=== PATIENT | male | born 1970 | race Two or more races ===

== ENCOUNTER 2021-10-04 12:56 | Inpatient (IN) | payer MEDICAID, OTHER ==
[~2021-10-04] VITALS: Ht 170.2 cm; Wt 74.0 kg
[2021-10-04 15:12] LABS: Basophils # (auto) 0.1 10 ^3/uL (0-0.2); Basophils % (auto) 1.4 % (0.0-2.0); Eosinophils # (auto) 0 10 ^3/uL (0-0.8); Eosinophils % (auto) 0.4 % (0.0-7.0); Hematocrit 47.4 % (41.0-53.0); Hemoglobin 15.7 g/dL (13.5-17.5); Lymphocytes # (auto) 0.6 10 ^3/uL (0.4-5.4); Lymphocytes % (auto) 10.4 % (10.0-50.0); Mean Corpuscular Hemoglobin 31.9 pg (28.0-32.0); Mean Corpuscular Hgb Conc. 33.2 g/dL (32.0-36.0); Mean Corpuscular Volume 96.3 fL (80.0-100.0); Monocytes # (auto) 0.6 10 ^3/uL (0-1.3); Monocytes % (auto) 9.8 % (0.0-12.0); Neutrophils # (auto) 4.5 10 ^3/uL (1.6-8.6); Nucleated Red Blood Cells % 0.1 %; Red Blood Cells 4.92 10^6/uL (4.5-5.90); Red Cell Distribution Width 16.1 % (11.8-14.3); White Blood Cell 5.7 10^3/uL (4.4-10.8)
[2021-10-04 15:32] LABS: Albumin 2.5 g/dL (3.4-5.0); Magnesium 2.1 mg/dL (1.6-2.6); Potassium 4.5 mmol/L (3.5-5.1)
[2021-10-04 15:41] LABS: BUN/Creatinine Ratio 27.7; Bilirubin, Total 1.1 mg/dL (0.2-1.0); Calcium 8.1 mg/dL (8.5-10.1); Total Protein 7.9 g/dL (6.4-8.2)
[2021-10-04] MEDS ORDERED: CLOPIDOGREL BISULFATE 75 MG TAB PO ONE (16:00)
[2021-10-04] MEDS ORDERED: ACETAMINOPHEN 325 MG TAB PO ONE (16:00)
[2021-10-04] MEDS ORDERED: VANCOMYCIN 1GM/250ML 250 ML IV ONE ×3 (16:00→22:35)
[2021-10-04] MEDS ORDERED: ASPirin 325 MG TAB PO ONE (16:00)
[2021-10-04] MEDS ORDERED: DexAMETHasone SOD PHOS 10MG/1ML VIAL INJ IV ONE (16:00)
[2021-10-04] MEDS ORDERED: DOBUTamine 1000MCG/ML 250 ML IV ONE (16:00)
[2021-10-04] MEDS ORDERED: CEFEPIME 1 GM in SODIUM CHL 0.9% 50 ML IV ONE (17:00)
[2021-10-04] MEDS ORDERED: NITROGLYCERIN 0.4 MG SL TAB SL PRN ×2 (17:15→19:15)
[2021-10-04] MEDS ORDERED: MORPHINE SULFATE INJECTION 2 MG/ML SYRG IV PRN ×4 (17:15→19:15)
[2021-10-04] MEDS: DOBUTamine 1000MCG/ML 250 ML IV SCH (17:15)
[2021-10-04] MEDS ORDERED: MORPHINE SULFATE INJECTION 2 MG/ML SYRG ONE (17:25)
[2021-10-04] MEDS ORDERED: BUMETANIDE 2.5mg/10ml (0.25 mg/ml) INJ IV ONE (17:30)
[2021-10-04] MEDS ORDERED: ENOXAPARIN SOD 100 MG/1 ML SYRINGE SC ONE (17:30)
[2021-10-04] MEDS ORDERED: VANCOMYCIN PER PHARMACY 0 MG IV SCH (17:45)
[2021-10-04] MEDS ORDERED: PIPERACILLIN-TAZOB 3.375GM 100 ML IV ONE (17:45)
[2021-10-04] MEDS ORDERED: ISOSORBIDE MONONITRATE 20 MG TAB PO ONE (17:45)
[2021-10-04] MEDS ORDERED: IPRATROPIUM BROM 0.5 MG/2.5ML INH SOL NEB ONE ×2 (17:45→19:00)
[2021-10-04] MEDS ORDERED: IPRATROPIUM BROM 0.5 MG/2.5ML INH SOL NEB SCH (18:00)
[2021-10-04] MEDS ORDERED: BUDESONIDE (INHALATION) 0.5 MG/2 ML NEB NEB ONE (19:00)
[2021-10-04] MEDS ORDERED: ALBUTEROL SULF 2.5 MG/0.5ML(0.5%) NEB SOLN NEB PRN (19:00)
[2021-10-04] MEDS ORDERED: LORazepam 2MG/ML-1ML VIAL IV PRN (19:15)
[2021-10-04] MEDS ORDERED: LORazepam 0.5 MG TAB PO PRN (19:15)
[2021-10-04] MEDS ORDERED: ALUM & MAG HYDROX-SIMETH LIQ(MAALOX) 30 ML PO PRN (19:15)
[2021-10-04] MEDS ORDERED: DOCUSATE SOD 100 MG CAP PO PRN (19:15)
[2021-10-04] MEDS ORDERED: ACETAMINOPHEN 325 MG TAB PO PRN (19:15)
[2021-10-04] MEDS: CARVEDILOL 3.125 MG TAB PO SCH (22:00)
[2021-10-04] MEDS ORDERED: ATORVASTATIN 20 MG TAB ONE (22:35)
[2021-10-04] MEDS ORDERED: SACUBITRIL-VALSARTAN 24mg/26mg TAB PO ONE (22:35)
[2021-10-04] MEDS ORDERED: CARVEDILOL 3.125 MG TAB ONE (22:40)
[2021-10-04] MEDS: ATORVASTATIN 20 MG TAB PO SCH (22:50)
[2021-10-04] MEDS: SACUBITRIL-VALSARTAN 24mg/26mg TAB PO SCH (22:50)
[2021-10-05] VITALS (20 sets, daily range): BP systolic 85–124; BP diastolic 54–85
[2021-10-05] MEDS ORDERED: IPRATROPIUM BROM 0.5 MG/2.5ML INH SOL NEB SCH (02:00)
[2021-10-05] MEDS ORDERED: HYDROcodone-ACET 5/325MG TAB ONE (03:33)
[2021-10-05] MEDS: HYDROcodone-ACET 5/325MG TAB PO PRN (03:44)
[2021-10-05] MEDS ORDERED: DOBUTamine 1000MCG/ML 250 ML IV ONE ×3 (03:58→15:42)
[2021-10-05] MEDS ORDERED: PIPERACILLIN-TAZOB 3.375GM 100 ML IV ONE (04:07)
[2021-10-05] MEDS: PIPERACILLIN-TAZOB 3.375GM 100 ML IV SCH ×3 (04:08→17:48)
[2021-10-05] MEDS: DOBUTamine 1000MCG/ML 250 ML IV SCH ×3 (04:09→21:10)
[2021-10-05] MEDS ORDERED: BUMETANIDE 2.5mg/10ml (0.25 mg/ml) INJ IV SCH (06:00)
[2021-10-05] MEDS ORDERED: VANCOMYCIN 1GM/250ML 250 ML IV SCH (06:00)
[2021-10-05 06:40] LABS: Basophils # (auto) 0 10 ^3/uL (0-0.2); Basophils % (auto) 0.1 % (0.0-2.0); Eosinophils # (auto) 0 10 ^3/uL (0-0.8); Eosinophils % (auto) 0.1 % (0.0-7.0); Hematocrit 48.9 % (41.0-53.0); Hemoglobin 16.1 g/dL (13.5-17.5); Lymphocytes # (auto) 0.3 10 ^3/uL (0.4-5.4); Lymphocytes % (auto) 9.5 % (10.0-50.0); Mean Corpuscular Hemoglobin 31.5 pg (28.0-32.0); Mean Corpuscular Hgb Conc. 32.9 g/dL (32.0-36.0); Mean Corpuscular Volume 95.9 fL (80.0-100.0); Monocytes # (auto) 0.1 10 ^3/uL (0-1.3); Monocytes % (auto) 1.5 % (0.0-12.0); Neutrophils # (auto) 3.2 10 ^3/uL (1.6-8.6); Neutrophils % (auto) 88.8 % (37.0-80.0); Nucleated Red Blood Cells % 0.1 %; White Blood Cell 3.6 10^3/uL (4.4-10.8)
[2021-10-05] MEDS ORDERED: NOREPINEPHRINE 8 MG/250ML KIT 250 ML IV ONE (06:41)
[2021-10-05 06:57] LABS: INR 1.27 (0.9-1.15); Partial Thromboplastin Time 29.8 sec (23.6-33.0)
[2021-10-05] MEDS ORDERED: BUMETANIDE INJECTION 10 ML ONE (06:58)
[2021-10-05] MEDS: NOREPINEPHRINE 8 MG/250ML KIT 250 ML IV SCH (07:00)
[2021-10-05 07:04] LABS: Albumin 2.4 g/dL (3.4-5.0); Calcium 7.9 mg/dL (8.5-10.1); Magnesium 2.6 mg/dL (1.6-2.6); Potassium 3.7 mmol/L (3.5-5.1)
[2021-10-05 07:11] LABS: BUN/Creatinine Ratio 22.8; Phosphorus 2.5 mg/dL (2.5-4.90); Total Protein 7.6 g/dL (6.4-8.2)
[2021-10-05] MEDS ORDERED: VANCOMYCIN 1GM/250ML 0 ML IV ONE (09:40)
[2021-10-05] MEDS ORDERED: VERAPAMIL 2.5MG/ML INJ 2ML VIAL IV ONE (09:45)
[2021-10-05] MEDS ORDERED: ANGIOMAX 250 MG VIAL IV ONE (09:45)
[2021-10-05] MEDS ORDERED: HEPARIN SODIUM (PORCINE) 5000 UNITS/ML 1ML VIAL ONE (09:45)
[2021-10-05] MEDS ORDERED: MIDAZOLAM HCL 2MG/2ML 2ml VIAL (1mg/ml) ONE (09:45)
[2021-10-05] MEDS ORDERED: fentaNYL CITRATE 100 MCG/2 ML VL ONE (09:45)
[2021-10-05] MEDS ORDERED: LIDOCAINE 2%HCL (LOCAL ANESTH.) INJ 20ML MDV ONE (09:46)
[2021-10-05] MEDS ORDERED: SODIUM CHL 0.9% 0 ML ONE (09:46)
[2021-10-05] MEDS ORDERED: IODIXANOL 320MG/ML 100ML BTL IV ONE ×2 (09:46→10:18)
[2021-10-05] MEDS ORDERED: ENOXAPARIN SOD 100 MG/1 ML SYRINGE SC SCH (10:00)
[2021-10-05] MEDS ORDERED: BUDESONIDE (INHALATION) 0.5 MG/2 ML NEB NEB SCH (10:00)
[2021-10-05] MEDS: CARVEDILOL 3.125 MG TAB PO SCH ×3 (10:00→21:30)
[2021-10-05] MEDS ORDERED: BENAZEPRIL HCL 10 MG TAB PO SCH (10:00)
[2021-10-05] MEDS: ISOSORBIDE MONONITRATE 20 MG TAB PO SCH ×2 (10:00→23:28)
[2021-10-05 14:02] LABS: Alcohol, Urine < 3.0 mg/dL (0-10); Amphetamine Screen, Urine NEGATIVE (NEGATIVE); Barbiturate Scree,Urine NEGATIVE (NEGATIVE); Benzodiazephine Screen, Urine POSITIVE (NEGATIVE); Cannabinoid Screen, Urine NEGATIVE (NEGATIVE); Cocaine Screen, Urine NEGATIVE (NEGATIVE); Opiate Scree,Urine NEGATIVE (NEGATIVE); Phencyclidine Screen, Urine NEGATIVE (NEGATIVE)
[2021-10-05 14:05] LABS: Urine Bacteria NONE SEEN /hpf (None Seen); Urine Blood Negative /uL (Negative); Urine Specific Gravity 1.045 (1.001-1.035); Urine WBC <1 /hpf (0 - 3)
[2021-10-05] MEDS ORDERED: LIDOCAINE 1% (LOCAL ANESTH.) PF 5ml SDV ID ONE (16:45)
[2021-10-05] MEDS: SACUBITRIL-VALSARTAN 24mg/26mg TAB PO SCH ×3 (17:11→21:25)
[2021-10-05] MEDS: FUROSEMIDE 40 MG/4 ML VIAL IV SCH (17:47)
[2021-10-05] MEDS: ASPirin 81 mg TAB PO SCH (21:25)
[2021-10-05] MEDS: SODIUM CHLOR 0.9% PF (SALINE LOCK) 10ML VIAL/SYR IV SCH (21:25)
[2021-10-05] MEDS: ATORVASTATIN 20 MG TAB PO SCH (21:26)
[2021-10-05] MEDS: ENOXAPARIN SOD 80 MG/0.8ML SYRINGE SC SCH (21:26)
[2021-10-06] VITALS (22 sets, daily range): BP systolic 87–115; BP diastolic 51–78
[2021-10-06] MEDS: DOBUTamine 1000MCG/ML 250 ML IV SCH ×4 (01:26→21:14)
[2021-10-06] MEDS: PIPERACILLIN-TAZOB 3.375GM 100 ML IV SCH ×3 (01:27→18:00)
[2021-10-06 05:31] LABS: BUN/Creatinine Ratio 22.5; Calcium 8.1 mg/dL (8.5-10.1); Potassium 4.2 mmol/L (3.5-5.1)
[2021-10-06] MEDS: FUROSEMIDE 40 MG/4 ML VIAL IV SCH ×2 (07:20→17:19)
[2021-10-06] MEDS: SODIUM CHLOR 0.9% PF (SALINE LOCK) 10ML VIAL/SYR IV SCH ×2 (10:00→21:52)
[2021-10-06] MEDS: ISOSORBIDE MONONITRATE 20 MG TAB PO SCH ×2 (10:00→23:03)
[2021-10-06] MEDS: SACUBITRIL-VALSARTAN 24mg/26mg TAB PO SCH ×2 (10:00→21:53)
[2021-10-06] MEDS: CARVEDILOL 3.125 MG TAB PO SCH ×2 (10:00→23:02)
[2021-10-06] MEDS: ENOXAPARIN SOD 80 MG/0.8ML SYRINGE SC SCH (10:00)
[2021-10-06] MEDS: NOREPINEPHRINE 8 MG/250ML KIT 250 ML IV SCH (17:19)
[2021-10-06] MEDS: ATORVASTATIN 20 MG TAB PO SCH (21:50)
[2021-10-06] MEDS: ASPirin 81 mg TAB PO SCH (21:51)
[2021-10-06] MEDS: APIXABAN 5 MG TAB PO SCH (21:51)
[2021-10-06] MEDS: AMIODARONE HCL 200 MG TAB PO SCH (21:52)
[2021-10-07] VITALS (58 sets, daily range): BP systolic 60–146; BP diastolic 41–111
[2021-10-07] MEDS: PIPERACILLIN-TAZOB 3.375GM 100 ML IV SCH ×3 (02:15→18:05)
[2021-10-07] MEDS: FUROSEMIDE 40 MG/4 ML VIAL IV SCH ×2 (06:00→18:04)
[2021-10-07] MEDS: DOBUTamine 1000MCG/ML 250 ML IV SCH ×2 (06:27→10:53)
[2021-10-07] MEDS: SODIUM CHLOR 0.9% PF (SALINE LOCK) 10ML VIAL/SYR IV SCH ×2 (10:36→21:26)
[2021-10-07] MEDS: CARVEDILOL 3.125 MG TAB PO SCH (10:40)
[2021-10-07] MEDS: AMIODARONE HCL 200 MG TAB PO SCH ×2 (10:40→21:25)
[2021-10-07] MEDS: ISOSORBIDE MONONITRATE 20 MG TAB PO SCH ×2 (10:41→21:26)
[2021-10-07] MEDS: SACUBITRIL-VALSARTAN 24mg/26mg TAB PO SCH (10:41)
[2021-10-07] MEDS: APIXABAN 5 MG TAB PO SCH ×2 (10:41→21:25)
[2021-10-07] MEDS: NOREPINEPHRINE 8 MG/250ML KIT 250 ML IV SCH (10:49)
[2021-10-07 10:54] LABS: Basophils # (auto) 0 10 ^3/uL (0-0.2); Basophils % (auto) 0.5 % (0.0-2.0); Eosinophils # (auto) 0 10 ^3/uL (0-0.8); Eosinophils % (auto) 0.5 % (0.0-7.0); Hematocrit 50.4 % (41.0-53.0); Hemoglobin 16.1 g/dL (13.5-17.5); Lymphocytes # (auto) 1.4 10 ^3/uL (0.4-5.4); Lymphocytes % (auto) 17.7 % (10.0-50.0); Mean Corpuscular Hemoglobin 30.8 pg (28.0-32.0); Mean Corpuscular Volume 96.3 fL (80.0-100.0); Monocytes # (auto) 0.7 10 ^3/uL (0-1.3); Monocytes % (auto) 8.5 % (0.0-12.0); Neutrophils # (auto) 5.9 10 ^3/uL (1.6-8.6); Neutrophils % (auto) 72.8 % (37.0-80.0); Nucleated Red Blood Cells % 0.2 %; Red Blood Cells 5.23 10^6/uL (4.5-5.90); Red Cell Distribution Width 16.3 % (11.8-14.3)
[2021-10-07 11:04] LABS: Albumin 2.2 g/dL (3.4-5.0); Calcium 7.7 mg/dL (8.5-10.1); Magnesium 2.2 mg/dL (1.6-2.6); Potassium 3.8 mmol/L (3.5-5.1)
[2021-10-07 11:10] LABS: BUN/Creatinine Ratio 18.5; Bilirubin, Total 1.3 mg/dL (0.2-1.0); Total Protein 6.9 g/dL (6.4-8.2); Uric Acid 4.5 mg/dL (3.5-7.2)
[2021-10-07 12:36] LABS: INR 1.27 (0.9-1.15); Partial Thromboplastin Time 30.2 sec (23.6-33.0)
[2021-10-07] MEDS ORDERED: SODIUM CHLORIDE 0.9% 500 ML IV ONE (15:00)
[2021-10-07] MEDS ORDERED: ALBUMIN 25% 50 ML IV ONE (15:00)
[2021-10-07] MEDS: ASPirin 81 mg TAB PO SCH (21:24)
[2021-10-07] MEDS: ATORVASTATIN 20 MG TAB PO SCH (21:25)
[2021-10-08] VITALS (53 sets, daily range): BP systolic 84–122; BP diastolic 45–89
[2021-10-08] MEDS: PIPERACILLIN-TAZOB 3.375GM 100 ML IV SCH ×3 (02:30→18:00)
[2021-10-08 05:01] LABS: Basophils # (auto) 0.1 10 ^3/uL (0-0.2); Basophils % (auto) 0.7 % (0.0-2.0); Eosinophils # (auto) 0.1 10 ^3/uL (0-0.8); Eosinophils % (auto) 0.8 % (0.0-7.0); Hematocrit 51.8 % (41.0-53.0); Lymphocytes # (auto) 1.5 10 ^3/uL (0.4-5.4); Lymphocytes % (auto) 20.1 % (10.0-50.0); Mean Corpuscular Hemoglobin 31.5 pg (28.0-32.0); Mean Corpuscular Hgb Conc. 32.8 g/dL (32.0-36.0); Mean Corpuscular Volume 96.3 fL (80.0-100.0); Monocytes # (auto) 0.8 10 ^3/uL (0-1.3); Neutrophils # (auto) 5.1 10 ^3/uL (1.6-8.6); Neutrophils % (auto) 67.4 % (37.0-80.0); Nucleated Red Blood Cells % 0.2 %; Red Blood Cells 5.38 10^6/uL (4.5-5.90); Red Cell Distribution Width 16.1 % (11.8-14.3); White Blood Cell 7.6 10^3/uL (4.4-10.8)
[2021-10-08 05:33] LABS: INR 1.26 (0.9-1.15); Partial Thromboplastin Time 32.8 sec (23.6-33.0)
[2021-10-08] MEDS: FUROSEMIDE 40 MG/4 ML VIAL IV SCH (05:53)
[2021-10-08] MEDS: NOREPINEPHRINE 8 MG/250ML KIT 250 ML IV SCH ×2 (06:45→15:46)
[2021-10-08] MEDS: ISOSORBIDE MONONITRATE 20 MG TAB PO SCH (10:19)
[2021-10-08] MEDS: APIXABAN 5 MG TAB PO SCH ×2 (10:19→21:57)
[2021-10-08] MEDS: SODIUM CHLOR 0.9% PF (SALINE LOCK) 10ML VIAL/SYR IV SCH ×2 (10:20→21:57)
[2021-10-08] MEDS: AMIODARONE HCL 200 MG TAB PO SCH ×2 (10:20→21:57)
[2021-10-08 10:39] LABS: Albumin 2.7 g/dL (3.4-5.0); Calcium 8.1 mg/dL (8.5-10.1); Magnesium 2.3 mg/dL (1.6-2.6)
[2021-10-08 10:45] LABS: BUN/Creatinine Ratio 19.9; Bilirubin, Total 1.7 mg/dL (0.2-1.0); Phosphorus 3.1 mg/dL (2.5-4.90); Total Protein 7.7 g/dL (6.4-8.2)
[2021-10-08] MEDS ORDERED: LORazepam 2MG/ML-1ML VIAL IV PRN (15:15)
[2021-10-08] MEDS: ASPirin 81 mg TAB PO SCH (21:57)
[2021-10-08] MEDS: ATORVASTATIN 20 MG TAB PO SCH (21:57)
[2021-10-09] VITALS (60 sets, daily range): BP systolic 75–138; BP diastolic 39–101
[2021-10-09] MEDS: PIPERACILLIN-TAZOB 3.375GM 100 ML IV SCH ×2 (02:00→10:00)
[2021-10-09 04:02] LABS: Calcium 8.6 mg/dL (8.5-10.1); Potassium 3.9 mmol/L (3.5-5.1)
[2021-10-09 04:09] LABS: BUN/Creatinine Ratio 25.8
[2021-10-09] MEDS: FUROSEMIDE 40 MG/4 ML VIAL IV SCH (06:36)
[2021-10-09] MEDS: SODIUM CHLOR 0.9% PF (SALINE LOCK) 10ML VIAL/SYR IV SCH ×2 (10:00→21:31)
[2021-10-09] MEDS: AMIODARONE HCL 200 MG TAB PO SCH ×2 (10:00→21:32)
[2021-10-09] MEDS: APIXABAN 5 MG TAB PO SCH ×2 (10:01→21:32)
[2021-10-09] MEDS: ASPirin 81 mg TAB PO SCH (21:31)
[2021-10-09] MEDS: ATORVASTATIN 20 MG TAB PO SCH (21:32)
[2021-10-10] VITALS (60 sets, daily range): BP systolic 76–139; BP diastolic 43–90
[2021-10-10] MEDS: PIPERACILLIN-TAZOB 3.375GM 100 ML IV SCH ×2 (01:52→09:23)
[2021-10-10 03:38] LABS: BUN/Creatinine Ratio 24.5; Calcium 8.6 mg/dL (8.5-10.1); Potassium 4.2 mmol/L (3.5-5.1)
[2021-10-10] MEDS: FUROSEMIDE 40 MG/4 ML VIAL IV SCH (06:04)
[2021-10-10] MEDS: NOREPINEPHRINE 8 MG/250ML KIT 250 ML IV SCH (06:45)
[2021-10-10] MEDS: SODIUM CHLOR 0.9% PF (SALINE LOCK) 10ML VIAL/SYR IV SCH ×2 (09:22→21:17)
[2021-10-10] MEDS: AMIODARONE HCL 200 MG TAB PO SCH ×2 (09:23→21:18)
[2021-10-10] MEDS: APIXABAN 5 MG TAB PO SCH ×2 (09:23→21:17)
[2021-10-10] MEDS: DOBUTamine 1000MCG/ML 250 ML IV SCH (14:20)
[2021-10-10] MEDS ORDERED: NOREPINEPHRINE 8 MG/250ML KIT 250 ML IV SCH (14:30)
[2021-10-10] MEDS: ASPirin 81 mg TAB PO SCH (21:17)
[2021-10-10] MEDS: ATORVASTATIN 20 MG TAB PO SCH (21:18)
[2021-10-11] VITALS (18 sets, daily range): BP systolic 87–127; BP diastolic 66–88
[2021-10-11] MEDS: DOBUTamine 1000MCG/ML 250 ML IV SCH ×4 (00:17→22:23)
[2021-10-11 04:30] LABS: Albumin 2.6 g/dL (3.4-5.0); Calcium 8.5 mg/dL (8.5-10.1); Potassium 3.5 mmol/L (3.5-5.1)
[2021-10-11 04:32] LABS: BUN/Creatinine Ratio 30.6
[2021-10-11 04:38] LABS: Bilirubin, Total 1.4 mg/dL (0.2-1.0); Total Protein 7.3 g/dL (6.4-8.2)
[2021-10-11] MEDS: AMIODARONE HCL 200 MG TAB PO SCH ×2 (09:58→22:22)
[2021-10-11] MEDS: APIXABAN 5 MG TAB PO SCH ×2 (10:00→22:23)
[2021-10-11] MEDS: levoFLOXacin 500 MG TAB PO SCH (10:00)
[2021-10-11] MEDS: SODIUM CHLOR 0.9% PF (SALINE LOCK) 10ML VIAL/SYR IV SCH ×2 (10:01→22:21)
[2021-10-11] MEDS: ASPirin 81 mg TAB PO SCH (22:22)
[2021-10-11] MEDS: ATORVASTATIN 20 MG TAB PO SCH (22:22)
[2021-10-12] VITALS (14 sets, daily range): BP systolic 87–123; BP diastolic 49–96
[2021-10-12] MEDS: ONDANSETRON HCL 4 MG/2 ML VIAL IV PRN (00:27)
[2021-10-12 06:40] LABS: Calcium 7.7 mg/dL (8.5-10.1); Potassium 3.7 mmol/L (3.5-5.1)
[2021-10-12 06:42] LABS: BUN/Creatinine Ratio 29.6
[2021-10-12] MEDS: DOBUTamine 1000MCG/ML 250 ML IV SCH ×2 (09:33→12:15)
[2021-10-12] MEDS: AMIODARONE HCL 200 MG TAB PO SCH ×2 (09:35→23:38)
[2021-10-12] MEDS: SODIUM CHLOR 0.9% PF (SALINE LOCK) 10ML VIAL/SYR IV SCH ×2 (09:35→23:00)
[2021-10-12] MEDS: APIXABAN 5 MG TAB PO SCH ×2 (09:35→23:10)
[2021-10-12] MEDS: levoFLOXacin 500 MG TAB PO SCH (09:36)
[2021-10-12] MEDS ORDERED: SPIR25TA8 PO (09:55)
[2021-10-12] MEDS ORDERED: ATOR40TA52 PO (09:55)
[2021-10-12] MEDS ORDERED: APIX5TAB PO (09:55)
[2021-10-12] MEDS ORDERED: SACU1TAB PO (09:55)
[2021-10-12] MEDS ORDERED: METO25TA93 PO (09:55)
[2021-10-12] MEDS ORDERED: FUR20T PO (09:55)
[2021-10-12] MEDS ORDERED: FUROSEMIDE 20 MG TAB PO ONE (12:30)
[2021-10-12] MEDS: ASPirin 81 mg TAB PO SCH (23:01)
[2021-10-12] MEDS ORDERED: METO-289 PO (23:06)
[2021-10-12] MEDS: ATORVASTATIN 20 MG TAB PO SCH (23:10)
[2021-10-13 05:00] VITALS: BP 98/58
[2021-10-13 05:44] LABS: Potassium 4.5 mmol/L (3.5-5.1)
[2021-10-13 05:51] LABS: BUN/Creatinine Ratio 21.2; Calcium 8.5 mg/dL (8.5-10.1)
[2021-10-13 08:30] VITALS: BP 98/58
[2021-10-13] MEDS: DOBUTamine 1000MCG/ML 250 ML IV SCH (09:03)
[2021-10-13 09:25] VITALS: BP 137/67
[2021-10-13] MEDS: SODIUM CHLOR 0.9% PF (SALINE LOCK) 10ML VIAL/SYR IV SCH ×2 (10:29→21:57)
[2021-10-13] MEDS: APIXABAN 5 MG TAB PO SCH ×2 (10:30→21:57)
[2021-10-13] MEDS: AMIODARONE HCL 200 MG TAB PO SCH ×2 (10:30→21:57)
[2021-10-13] MEDS: FUROSEMIDE 20 MG TAB PO SCH (10:30)
[2021-10-13 13:00] VITALS: BP 96/62
[2021-10-13] MEDS: ONDANSETRON HCL 4 MG/2 ML VIAL IV PRN (16:06)
[2021-10-13 17:00] VITALS: BP 122/91
[2021-10-13] MEDS: ASPirin 81 mg TAB PO SCH (21:57)
[2021-10-13] MEDS: ATORVASTATIN 20 MG TAB PO SCH (21:57)
[2021-10-13 22:00] VITALS: BP 111/72
[2021-10-14 05:00] VITALS: BP 111/73
[2021-10-14 08:00] VITALS: BP 137/67
[2021-10-14 09:00] VITALS: BP 113/67
[2021-10-14] MEDS: AMIODARONE HCL 200 MG TAB PO SCH ×2 (10:00→22:00)
[2021-10-14] MEDS: FUROSEMIDE 20 MG TAB PO SCH (10:00)
[2021-10-14] MEDS: APIXABAN 5 MG TAB PO SCH ×2 (11:35→23:14)
[2021-10-14] MEDS: SODIUM CHLOR 0.9% PF (SALINE LOCK) 10ML VIAL/SYR IV SCH ×2 (11:36→23:13)
[2021-10-14] MEDS: DOBUTamine 1000MCG/ML 250 ML IV SCH (12:00)
[2021-10-14] MEDS: HYDROcodone-ACET 5/325MG TAB PO PRN (12:15)
[2021-10-14] MEDS: ONDANSETRON HCL 4 MG/2 ML VIAL IV PRN (20:43)
[2021-10-14] MEDS: ATORVASTATIN 20 MG TAB PO SCH (23:14)
[2021-10-14] MEDS: ASPirin 81 mg TAB PO SCH (23:19)
[2021-10-15 08:00] VITALS: BP 139/80
[2021-10-15] MEDS: FUROSEMIDE 20 MG TAB PO SCH (10:00)
[2021-10-15] MEDS: SODIUM CHLOR 0.9% PF (SALINE LOCK) 10ML VIAL/SYR IV SCH ×2 (10:00→21:51)
[2021-10-15] MEDS: AMIODARONE HCL 200 MG TAB PO SCH ×2 (10:00→21:52)
[2021-10-15] MEDS: APIXABAN 5 MG TAB PO SCH ×2 (10:00→21:51)
[2021-10-15] MEDS: HYDROcodone-ACET 5/325MG TAB PO PRN ×2 (11:57→20:00)
[2021-10-15 12:00] VITALS: BP 117/74
[2021-10-15 17:00] VITALS: BP 112/76
[2021-10-15] MEDS: ATORVASTATIN 20 MG TAB PO SCH (21:51)
[2021-10-15] MEDS: ASPirin 81 mg TAB PO SCH (21:51)
[2021-10-15 22:00] VITALS: BP 128/79
[2021-10-16 05:00] VITALS: BP 132/74
[2021-10-16 05:59] LABS: Calcium 8.8 mg/dL (8.5-10.1); Potassium 4.5 mmol/L (3.5-5.1)
[2021-10-16 06:01] LABS: BUN/Creatinine Ratio 20.7
[2021-10-16 08:00] VITALS: BP 123/73
[2021-10-16] MEDS: SODIUM CHLOR 0.9% PF (SALINE LOCK) 10ML VIAL/SYR IV SCH ×2 (09:59→21:10)
[2021-10-16] MEDS: AMIODARONE HCL 200 MG TAB PO SCH ×2 (10:00→21:10)
[2021-10-16] MEDS: APIXABAN 5 MG TAB PO SCH ×2 (10:00→21:09)
[2021-10-16] MEDS: FUROSEMIDE 20 MG TAB PO SCH (10:02)
[2021-10-16] MEDS ORDERED: ISOSORBIDE MONONITRATE ER 60 MG TAB PO ONE (12:00)
[2021-10-16] MEDS ORDERED: hydrALAZINE HCL 25 MG TAB PO ONE (12:00)
[2021-10-16 12:05] VITALS: BP 105/72
[2021-10-16 16:20] VITALS: BP 117/85
[2021-10-16] MEDS: hydrALAZINE HCL 25 MG TAB PO SCH (21:09)
[2021-10-16] MEDS: ATORVASTATIN 20 MG TAB PO SCH (21:10)
[2021-10-16] MEDS: ASPirin 81 mg TAB PO SCH (21:10)
[2021-10-16 22:00] VITALS: BP 111/82
[2021-10-17] MEDS: ONDANSETRON HCL 4 MG/2 ML VIAL IV PRN (01:09)
[2021-10-17 05:00] VITALS: BP 97/66
[2021-10-17 06:11] LABS: Calcium 8.4 mg/dL (8.5-10.1); Potassium 4.1 mmol/L (3.5-5.1)
[2021-10-17 06:12] LABS: BUN/Creatinine Ratio 24.4
[2021-10-17 08:00] VITALS: BP 113/83
[2021-10-17] MEDS: AMIODARONE HCL 200 MG TAB PO SCH ×2 (08:55→22:08)
[2021-10-17] MEDS: hydrALAZINE HCL 25 MG TAB PO SCH ×2 (08:56→22:08)
[2021-10-17] MEDS: APIXABAN 5 MG TAB PO SCH ×2 (08:56→22:15)
[2021-10-17] MEDS: ISOSORBIDE MONONITRATE ER 60 MG TAB PO SCH (08:56)
[2021-10-17] MEDS: SODIUM CHLOR 0.9% PF (SALINE LOCK) 10ML VIAL/SYR IV SCH ×2 (08:57→22:19)
[2021-10-17 12:00] VITALS: BP 103/77
[2021-10-17 16:00] VITALS: BP 125/82
[2021-10-17 22:00] VITALS: BP 108/60
[2021-10-17] MEDS: ASPirin 81 mg TAB PO SCH (22:08)
[2021-10-17] MEDS: ATORVASTATIN 20 MG TAB PO SCH (22:08)
[2021-10-18 05:00] VITALS: BP 108/70
[2021-10-18 07:18] LABS: BUN/Creatinine Ratio 27.1; Calcium 8.3 mg/dL (8.5-10.1); Potassium 3.4 mmol/L (3.5-5.1)
[2021-10-18 09:00] VITALS: BP 139/73
[2021-10-18] MEDS: SODIUM CHLOR 0.9% PF (SALINE LOCK) 10ML VIAL/SYR IV SCH ×2 (09:14→22:00)
[2021-10-18] MEDS: hydrALAZINE HCL 25 MG TAB PO SCH ×2 (09:15→22:00)
[2021-10-18] MEDS: AMIODARONE HCL 200 MG TAB PO SCH ×2 (09:15→22:00)
[2021-10-18] MEDS: ISOSORBIDE MONONITRATE ER 60 MG TAB PO SCH (09:16)
[2021-10-18] MEDS ORDERED: POTASSIUM CHL 10 Meq TABLET PO ONE (10:15)
[2021-10-18] MEDS: APIXABAN 5 MG TAB PO SCH ×2 (11:35→22:00)
[2021-10-18 13:00] VITALS: BP 124/75
[2021-10-18 17:00] VITALS: BP 112/72
[2021-10-18 20:00] VITALS: BP 137/77
[2021-10-18 22:00] VITALS: BP 137/77
[2021-10-18] MEDS: ATORVASTATIN 20 MG TAB PO SCH (22:00)
[2021-10-18] MEDS: ASPirin 81 mg TAB PO SCH (22:00)
[2021-10-19 05:00] VITALS: BP 127/78
[2021-10-19 06:01] LABS: Calcium 8.3 mg/dL (8.5-10.1); Potassium 3.6 mmol/L (3.5-5.1)
[2021-10-19 06:03] LABS: BUN/Creatinine Ratio 27.4
[2021-10-19 09:00] VITALS: BP 130/76
[2021-10-19] MEDS: ISOSORBIDE MONONITRATE ER 60 MG TAB PO SCH (09:12)
== END 2021-10-19 13:01 | disposition home or self-care (01) | DRG 192 ==
LOC: ER 12:56 → EDBD 12:56 → TELE 18:56 → UNDOADMIN 18:56 → TELE 19:02 → CATH ICU 10-05 10:55 → CENTRAL 10-12 09:45 → TELE-CENTR 10-13 23:31
PROVIDERS: ADMIT Hospitalist; ATTEND Internal Medicine
PROC: 4A023N7 Measurement of Cardiac Sampling and Pressure, Left Heart, Percutaneous Approach (ICD-10-PCS; principal; 2021-10-05)
PROC: B211YZZ Fluoroscopy of Multiple Coronary Arteries using Other Contrast (ICD-10-PCS; 2021-10-05)
PROC: B215YZZ Fluoroscopy of Left Heart using Other Contrast (ICD-10-PCS; 2021-10-05)
DX: I11.0 Hypertensive heart disease with heart failure (principal); N17.0 Acute kidney failure with tubular necrosis; R57.0 Cardiogenic shock; I21.4 Non-ST elevation (NSTEMI) myocardial infarction; D68.69 Other thrombophilia; I31.3 Pericardial effusion (noninflammatory); I42.0 Dilated cardiomyopathy; I50.23 Acute on chronic systolic (congestive) heart failure; I48.92 Unspecified atrial flutter; K70.10 Alcoholic hepatitis without ascites; I48.0 Paroxysmal atrial fibrillation; I25.10 Atherosclerotic heart disease of native coronary artery without angina pectoris; K21.9 Gastro-esophageal reflux disease without esophagitis; K29.70 Gastritis, unspecified, without bleeding; E78.5 Hyperlipidemia, unspecified; K80.20 Calculus of gallbladder without cholecystitis without obstruction; J44.0 Chronic obstructive pulmonary disease with (acute) lower respiratory infection; Z72.0 Tobacco use; Z79.01 Long term (current) use of anticoagulants; Z79.899 Other long term (current) drug therapy; Z91.11 Patient's noncompliance with dietary regimen; Z95.5 Presence of coronary angioplasty implant and graft; Z95.810 Presence of automatic (implantable) cardiac defibrillator; Z86.73 Personal history of transient ischemic attack (TIA), and cerebral infarction without residual deficits
CPT/HCPCS: 36415; 36569; 71045; 76705; 80048; 80053; 80307; 81001; 82565; 82962; 83036; 83605; 83735; 83880; 84100; 84484; 84550; 85025; 85379; 85610; 85730; 87040; 87081; 87086; 87426; 93005; 93306; 93458; 93970; 96365; 99152; G0378; J1100; J2250; J2405; J2543; Q9967

== ENCOUNTER 2021-10-23 17:01 | Emergency (ER) | payer MEDICAID ==
[~2021-10-23] VITALS: Ht 170.2 cm; Wt 72.6 kg
[~2021-10-23 17:01] MED LIST: APIX5TAB PO; ATOR40TA52 PO; FUR20T PO; METO-289 PO; SACU1TAB PO; SPIR25TA8 PO
[2021-10-23 18:38] LABS: Urine Bacteria NONE SEEN /hpf (None Seen); Urine Blood Negative /uL (Negative); Urine Specific Gravity 1.014 (1.001-1.035); Urine WBC 8 /hpf (0 - 3)
[2021-10-23 19:55] LABS: Basophils # (auto) 0.1 10 ^3/uL (0-0.2); Eosinophils # (auto) 0.1 10 ^3/uL (0-0.8); Eosinophils % (auto) 1.4 % (0.0-7.0); Hematocrit 47.7 % (41.0-53.0); Lymphocytes # (auto) 0.8 10 ^3/uL (0.4-5.4); Mean Corpuscular Hemoglobin 31.8 pg (28.0-32.0); Mean Corpuscular Hgb Conc. 33.6 g/dL (32.0-36.0); Mean Corpuscular Volume 94.5 fL (80.0-100.0); Monocytes # (auto) 0.6 10 ^3/uL (0-1.3); Monocytes % (auto) 13.2 % (0.0-12.0); Neutrophils # (auto) 2.8 10 ^3/uL (1.6-8.6); Neutrophils % (auto) 65.4 % (37.0-80.0); Nucleated Red Blood Cells % 0.6 %; Red Blood Cells 5.04 10^6/uL (4.5-5.90); Red Cell Distribution Width 16.5 % (11.8-14.3); White Blood Cell 4.2 10^3/uL (4.4-10.8)
[2021-10-23 20:04] LABS: Calcium 8.8 mg/dL (8.5-10.1); Potassium 4.7 mmol/L (3.5-5.1)
[2021-10-23 20:12] LABS: BUN/Creatinine Ratio 22.8; Bilirubin, Total 2.4 mg/dL (0.2-1.0); Total Protein 8.2 g/dL (6.4-8.2)
[2021-10-23 21:09] VITALS: BP 103/60
== END 2021-10-23 23:11 | disposition home or self-care (01) ==
LOC: EDBD 17:01 → ER 17:12
DX: R00.2 Palpitations (principal); I48.91 Unspecified atrial fibrillation; I25.10 Atherosclerotic heart disease of native coronary artery without angina pectoris; I50.9 Heart failure, unspecified; I25.2 Old myocardial infarction; Z95.1 Presence of aortocoronary bypass graft; Z87.891 Personal history of nicotine dependence; Z79.899 Other long term (current) drug therapy
CPT/HCPCS: 36415; 71045; 80053; 81001; 84484; 85025; 93005; 99291